=== PATIENT | male | born 1970 | race African-American/Black ===

== ENCOUNTER → 2017-03-21 | Outpatient (CLI) | payer BC ==
--- NOTE | 2017-03-21 14:04 | KCIC ---
PROCEDURE Three-view right knee HISTORY Right knee pain and swelling for 3 weeks. COMPARISON None FINDINGS Joint spaces are intact. Soft tissue fullness in the suprapatellar space compatible with a joint effusion. No evidence of acute fracture. No aggressive bone destruction. IMPRESSION Findings of a joint effusion. Electronically signed by: Wilbur Hancock MD (March 21, 2017 14:03:43)
== END | disposition home or self-care (01) ==
LOC: KCIC 12:54
PROVIDERS: ATTEND Internal Medicine
DX: M25.561 Pain in right knee (principal); M25.461 Effusion, right knee
CPT/HCPCS: 73562

== ENCOUNTER → 2017-04-11 | Outpatient (CLI) | payer BC ==
--- NOTE | 2017-04-11 14:14 | KCIC ---
MR of the right knee HISTORY: Right knee pain. Pain for one month. Pain medial. TECHNIQUE: Routine multiplanar sequences are obtained. FINDINGS: Mild signal within the medial meniscus compatible with degeneration. No clear-cut medial meniscal tear. No evidence of a lateral meniscal tear. Anterior and posterior cruciate ligaments are intact. Medial collateral ligament appears intact. Iliotibial band unremarkable. Fibular collateral ligament, biceps femoris tendon and popliteus tendon are intact. Mild thickening of the proximal patellar tendon compatible with tendinosis. Quadriceps tendon intact. Large joint effusion. No evidence of osteochondral loose body. Full-thickness cartilage loss of the weightbearing medial femoral condyle measures 15 mm wide by 3.5 cm AP diameter. Subjacent bone marrow edema. Chondral thinning at the medial tibial plateau. Mild chondromalacia at the medial patellofemoral joint. No bone lesion or acute fracture. Small Elizabeth's cyst. Mild soft tissue edema or contusion around the knee. IMPRESSION: 1. Large full-thickness cartilage defect at the medial femoral condyle, could be degenerative or due to articular cartilage trauma and tear. No evidence of loose displaced articular cartilage fragment is visualized in the joint. 2. Medial meniscal degeneration without clear-cut tear. 3. Large joint effusion. Electronically signed by: Wilbur Hancock MD (04/11/2017 2:11 PM)
== END | disposition home or self-care (01) ==
LOC: KCIC MRI 10:47
PROVIDERS: ATTEND Internal Medicine
DX: M25.461 Effusion, right knee (principal)
CPT/HCPCS: 73721

== ENCOUNTER 2017-05-11 08:23 | Day surgery (SDC) | payer BC ==
[~2017-05-11] VITALS: Ht 188 cm; Wt 136.1 kg
[~2017-05-11 08:23] MED LIST: AMLO5TAB2 PO; ATOR20TA58 PO; BUPIVACAINE MPF 0.5% 30 ML VIAL. ONE; EPINEPHrine VIAL 30 MG/30 ML VIAL ONE; HYDR12.53 PO; HYDROmorphone 2 MG/ML VIAL IV PRN; IV RINGERS,LACTATED 1000ML 1,000 ML IV SCH; LIDOCAINE 1% 1 ML SYRINGE. ID PRN; LIDOCAINE 1% PF 30 ML VIAL. ONE; LOSA100T6 PO; METF500T4 PO; MORPHINE SULFATE 2 MG/ML DISP.SYRIN. IV PRN; OMEP40CA5 PO; ONDANSETRON PF 4 MG/2 ML VIAL. IV PRN; PROCHLORPERAZINE 10 MG/2 ML VIAL. IV PRN; fentaNYL PF VIAL 100 MCG/2 ML VIAL IV PRN
[2017-05-11] MEDS ORDERED: LIDOCAINE 2% PF Vial for OR 5 ML VIAL. ONE (09:12)
[2017-05-11] MEDS ORDERED: fentaNYL PF VIAL 100 MCG/2 ML VIAL ONE (09:12)
[2017-05-11] MEDS ORDERED: PROPOFOL 20 ML IV ONE (09:12)
[2017-05-11] MEDS ORDERED: SEVOFLURANE 31 TO 60 MINUTES. IH ONE (10:03)
[2017-05-11] MEDS ORDERED: DEXAMETHASONE SOD PHOS 20 MG/5 ML VIAL. ONE (10:03)
--- NOTE | 2017-05-11 10:05 | DISCH ---
DISCHARGE INSTRUCTIONS Condition on Discharge Condition on Discharge: Stable Activity After Discharge Activity Instructions for Disc: Other, see below Other activity instructions: ok for active ROM at knee, no weightbearing Bathing Instructions: Shower-keep dressing dry Weight Bearing Status after Di: Non weight bearing Diet after Discharge Diet after Discharge: Regular Wound Incision Care Wound/Incision Care: Ice to area for comfort, Keep wound/cast CDI, Keep wound elevated, Change dressing Contacting the DR. after DC Call your doctor for: Concerns you may have Follow-Up Follow up with: Jodee in 2wks Treatment/Equipment after DC Adaptive Equipment Issued: CHUN Granado II, MD May 11, 2017 10:05
--- NOTE | 2017-05-11 10:11 | PDOC4 ---
Operative Note Operative Note Date of surgery: 05/11/2017 Surgeon: Bryant Thakkar MD Flight Superintendent none Anesthesia Gen. Preoperative diagnosis right knee full-thickness cartilage injury Postoperative diagnosis: Same Procedure performed: Right knee arthroscopically and microfracture medial femoral condyle Findings: grade III changes trochlea, grade II changes at central patella, grade II-III changes at MFC from 30-45 degrees and full thickness cartilage loss MFC from 60-90 degrees Tourniquet time: Blood loss: 5mL Reason for procedure: Cleve is a very pleasant 47-year-old gentleman who had persistent knee pain and swelling with catching and popping that was painful. Clinical and radiographic evidence including MRI were consistent with the above preoperative diagnosis and after a discussion of the risks, benefits, and alternatives he elected to proceed. Description of procedure: Patient was greeted in the preoperative area by myself and the correct extremity was marked and verified. He was taken back to the operative suite and his antibiotics were started and row. Once in the OR, he was transferred gently supine to the OR table and secured to the bed. All pressure points were padded. A nonsterile tourniquet was placed to his right upper thigh. We then proceeded to prep and drape right lower extremity in our usual sterile fashion and conducted a standard preoperative timeout. After accomplishing this, I palpated and marked surface anatomy and made my standard anterolateral arthroscopic portal. I incised skin with a scalpel and inserted the blunt arthroscopic trocar into the suprapatellar pouch. After this, I conducted my diagnostic arthroscopy with the above-noted findings. Upon entering the medial compartment, I used a spinal needle to localize an anteromedial portal and incised skin in accordance with this. I bluntly dissected the surgery with a hemostat. I then introduced my probe and continued on with my diagnostic arthroscopy. After this, I reentered the medial compartment and debrided the calcified layer of cartilage at the site. After this I used a shaver to remove the loose debris. The lesion measured 12 x 15mm. I next used a microfracture awl to carefully puncture holes in the bone. After filling the bed with holes, I held the shaver adjacent to the holes and performed aspiration maneuvers to visualize extravasation of blood. After this, I re-conducted a diagnostic arthroscopy to remove any loose bony debris. I then placed the camera and shaver into the suprapatellar pouch and had an application assistant vigorously palpated the posterior knee and aspirated through my shaver as well. I then removed all excess arthroscopic fluid and the arthroscopic instrumentation. I then closed skin with simple interrupted 2-0 nylon. The tourniquet was let down after a sterile dressing and Fidencio wrap were applied. A hinged knee brace was applied after we had taken the drapes down. BRYANT THAKKAR II, MD May 11, 2017 10:11
[2017-05-11] MEDS ORDERED: ONDANSETRON PF 4 MG/2 ML VIAL. ONE (10:22)
[2017-05-11] MEDS ORDERED: DOCU-109 PO (10:33)
[2017-05-11] MEDS ORDERED: ONDA4TAB10 SL (10:34)
[2017-05-11] MEDS ORDERED: HYDR-965 PO (10:35)
[2017-05-11] MEDS: fentaNYL PF VIAL 100 MCG/2 ML VIAL IV PRN ×2 (11:01→11:15)
[2017-05-11] MEDS ORDERED: HYDROcodone/APAP 7.5/325MG 1 TAB TABLET PO ONE (11:35)
[2017-05-11 11:46] VITALS: BP 131/90
== END 2017-05-11 12:30 | disposition home or self-care (01) ==
LOC: SURG 08:23
PROVIDERS: ATTEND Orthopaedic Surgery Sports Medicine
DX: S72.431A Displaced fracture of medial condyle of right femur, initial encounter for closed fracture (principal); X58.XXXA Exposure to other specified factors, initial encounter; Y93.9 Activity, unspecified; Y92.9 Unspecified place or not applicable; E78.00 Pure hypercholesterolemia, unspecified; I10 Essential (primary) hypertension; E66.9 Obesity, unspecified; Z68.42 Body mass index [BMI] 45.0-49.9, adult; E11.9 Type 2 diabetes mellitus without complications; K21.9 Gastro-esophageal reflux disease without esophagitis; Z86.39 Personal history of other endocrine, nutritional and metabolic disease; Z72.89 Other problems related to lifestyle
CPT/HCPCS: 29879; 82962; C1782; J0171; J0690; J1100; J2405; J2704; J3010; J3490

== ENCOUNTER 2021-07-03 01:17 | Emergency (ER) | payer SELFPAY ==
[~2021-07-03] VITALS: Ht 188 cm; Wt 150.0 kg
[~2021-07-03 01:17] MED LIST changes: +AMLO-186 PO; -AMLO5TAB2 PO; -BUPIVACAINE MPF 0.5% 30 ML VIAL. ONE; +DOCU-109 PO; -EPINEPHrine VIAL 30 MG/30 ML VIAL ONE; +HYDR-3165 PO; -HYDR12.53 PO; +HYDR12.575 PO; -HYDROmorphone 2 MG/ML VIAL IV PRN; -IV RINGERS,LACTATED 1000ML 1,000 ML IV SCH; -LIDOCAINE 1% 1 ML SYRINGE. ID PRN; -LIDOCAINE 1% PF 30 ML VIAL. ONE; +LOSA100T14 PO; -LOSA100T6 PO; +METF500T16 PO; -METF500T4 PO; -MORPHINE SULFATE 2 MG/ML DISP.SYRIN. IV PRN; -OMEP40CA5 PO; +OMEP40CA7 PO; +ONDA4TAB10 SL; -ONDANSETRON PF 4 MG/2 ML VIAL. IV PRN; -PROCHLORPERAZINE 10 MG/2 ML VIAL. IV PRN; -fentaNYL PF VIAL 100 MCG/2 ML VIAL IV PRN
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
[2021-07-03 01:40] VITALS: BP 173/97
== END 2021-07-03 01:49 ==
LOC: ER 01:17
CPT/HCPCS: 99283